=== PATIENT | male | born 1980 | race African-American/Black ===

== ENCOUNTER 2017-03-21 11:40 | Emergency (ER) | payer BC ==
[~2017-03-21] VITALS: Ht 167.6 cm; Wt 104.3 kg
[~2017-03-21 11:40] MED LIST: LISINOPRIL40 MG PO; MAXZIDE-25 MG1 EACH PO; NAPROSYN500 MG PO; NOHOMEMEDICATIONS; NORFLEX100 MG PO; NORVASC5 MG PO; OMEPRAZOLE 20 M20 M1 PO
== END 2017-03-21 12:51 | disposition left against medical advice (07) ==
LOC: ER 11:40
DX: Z53.21 Procedure and treatment not carried out due to patient leaving prior to being seen by health care provider (principal)